=== PATIENT | female | born 1990 | race Two or more races ===

== ENCOUNTER → 2019-07-13 | Outpatient (CLI) | payer OTHER | END | disposition home or self-care (01) | LOC: RAD 15:05 | DX: S90.01XA Contusion of right ankle, initial encounter (principal) ==

== ENCOUNTER 2020-11-25 10:04 | Emergency (ER) | payer OTHER ==
[~2020-11-25] VITALS: Ht 170.2 cm; Wt 108.9 kg
== END 2020-11-25 12:44 | disposition home or self-care (01) ==
LOC: ER 10:04
DX: M79.662 Pain in left lower leg (principal)

== ENCOUNTER 2023-01-11 12:07 | Emergency (ER) | payer OTHER ==
[~2023-01-11] VITALS: Ht 170.2 cm; Wt 90.7 kg
[2023-01-11] MEDS ORDERED: TYLENOL ARTHRI650 MG PO (14:57)
[2023-01-11] MEDS ORDERED: METAXALONE800 MG PO (14:57)
[2023-01-11] MEDS ORDERED: MEDROLPACK PO (14:57)
[2023-01-11] MEDS ORDERED: CELEBREX200MG PO (14:57)
== END 2023-01-11 15:12 | disposition home or self-care (01) ==
LOC: ER 12:07
DX: S13.8XXA Sprain of joints and ligaments of other parts of neck, initial encounter (principal); X58.XXXA Exposure to other specified factors, initial encounter; Y93.89 Activity, other specified; Y92.89 Other specified places as the place of occurrence of the external cause; Y99.8 Other external cause status; G44.89 Other headache syndrome; Z91.013 Allergy to seafood